=== PATIENT | male | born 1950 | race Caucasian/White ===

== ENCOUNTER → 2018-03-22 | Outpatient (CLI) | payer MEDICARE, OTHER ==
[~2018-03-22] MED LIST: ADVIL LIQUI-GE200 MG PO; ALEVE220 M1 PO; ALLEGRA180 MG PO; GLUCOPHAGE500 MG PO; NASONEX17 GM NASAL; OMEPRAZOLE20 MG PO; PRAVASTATIN SOD40 MG PO; VICODIN ES TAB1 EACH PO
== END ==
LOC: M.RAD 10:53
DX: R06.02 Shortness of breath (principal)

== ENCOUNTER → 2018-03-27 | Outpatient (CLI) | payer MEDICARE, OTHER ==
--- NOTE | 2018-03-27 16:18 | 2DMMODE ---
[place] [address] 2 D/M-MODE ECHOCARDIOGRAM Name: SUNITHA GORDON Room: [facility]#: [id number] Admission: 03/27/18 Attend Phys: Sunitha Bennett, Discharge: Date of : 50 Date of Service: 03/27/18 1617 Report #: [id number] THIS REPORT FOR: //name// APPROVED REPORT Study performed: 03/27/2018 14:06:12 EXAM: Comprehensive 2D, Doppler, and color-flow Echocardiogram Patient Location: Out-Patient Status: routine BSA: 2.00 HR: 70 bpm BP: 116/80 mmHg Other Information Study Quality: Good Indications Dyspnea 2D Dimensions IVSd: 14.45 (7-11mm) LVOT Diam: 20.02 (18-24mm) LVDd: 41.12 mm PWd: 10.40 (7-11mm) Ascending Ao: 30.76 (22-36mm) LVDs: 27.04 (25-40mm) Aortic Root: 30.75 mm Volumes Left Atrial Volume (Systole) LA ESV Index: 14.20 mL/m2 Aortic Valve AoV Peak Piyush.: 1.19 m/s AO Peak Gr.: 5.62 mmHg LVOT Max P.67 mmHg AO Mean Gr.: 2.52 mmHg LVOT Mean P.39 mmHg LVOT Max V: 0.82 m/s AO V2 VTI: 19.75 cm LVOT Mean V: 0.55 m/s MAU (VTI): 3.23 cm2 LVOT V1 VTI: 20.30 cm Mitral Valve E/A Ratio: 0.94 MV Decel. Time: 159.54 ms MV E Max Piyush.: 0.60 m/s MV PHT: 46.27 ms MVA (PHT): 4.76 [place] [address] 2 D/M-MODE ECHOCARDIOGRAM Name: SUNITHA GORDON Room: [facility]#: [id number] Admission: 03/27/18 Attend Phys: Sunitha Bennett, Discharge: Date of : 50 Date of Service: 03/27/18 1617 Report #: [id number] TDI E/Lateral E': 5.45 E/Medial E': 7.50 Medial E' Piyush.: 0.08 m/s Lateral E' Piyush.: 0.11 m/s Pulmonary Valve PV Peak Piyush.: 0.94 m/s PV Peak Gr.: 3.54 mmHg Tricuspid Valve RAP Estimate: 5.00 mmHg TR Peak Gr.: 20.67 mmHg RVSP: 25.67 mmHg PA Pressure: 25.67 mmHg Left Ventricle The left ventricle is normal size. There is normal LV segmental wall motion. There is normal left ventricular wall thickness. Left ventricular systolic function is normal. LVEF is 60-65%. The left ventricular diastolic function is normal. Right Ventricle The right ventricle is normal size. The right ventricular systolic function is normal. Atria The left atrium size is normal. The right atrium size is normal. Aortic Valve The aortic valve is normal in structure. No aortic regurgitation is present. There is no aortic valvular stenosis. Mitral Valve The mitral valve is normal in structure. Mild mitral regurgitation. No evidence of mitral valve stenosis. Tricuspid Valve The tricuspid valve is normal in structure. Mild tricuspid regurgitation. No pulmonary hypertension. Pulmonic Valve The pulmonary valve is normal in structure. There is no pulmonic [place] [address] 2 D/M-MODE ECHOCARDIOGRAM Name: SUNITHA GORDON [id number] Admission: 03/27/18 Attend Phys: Sunitha Bennett, Discharge: Date of : 50 Date of Service: 03/27/18 1617 Report #: [id number] Great Vessels The aortic root is normal in size. IVC is normal in size and collapses >50% with inspiration. Pericardium There is no pericardial effusion. <Conclusion> The left ventricle is normal size. There is normal left ventricular wall thickness. Left ventricular systolic function is normal. LVEF is 60-65%. The left ventricular diastolic function is normal. Mild tricuspid regurgitation. No pulmonary hypertension. IVC is normal in size and collapses >50% with inspiration. <ELECTRONICALLY SIGNED> By: Raymond Pablo MD, FACC 03/27/18 161 16 16 Raymond Pablo MD, FACC /INF
== END ==
LOC: M.CRD 12:50
DX: I07.1 Rheumatic tricuspid insufficiency (principal); I35.8 Other nonrheumatic aortic valve disorders; R06.02 Shortness of breath; E11.9 Type 2 diabetes mellitus without complications

== ENCOUNTER 2018-04-06 14:09 | Inpatient (IN) | payer MEDICARE, OTHER ==
[~2018-04-06] VITALS: Ht 170.2 cm; Wt 88.7 kg
--- NOTE | ~2018-04-06 | EKG ---
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
[~2018-04-06 14:09] MED LIST changes: +ALLEGRA ALLERGY60 MG PO; -ALLEGRA180 MG PO
[2018-04-06 14:24] VITALS: BP 173/90
[2018-04-06] MEDS ORDERED: ETODOLAC 400 M400 M1 PO (14:33)
[2018-04-06] MEDS ORDERED: METFORMIN HCL500 MG PO (14:42)
[2018-04-06 15:01] LABS: ABSOLUTE EOSINOPHILS 0.2 thou/uL (0.0-0.7); ABSOLUTE LYMPHOCYTES 2.3 thou/uL (0.8-5.3); ABSOLUTE MONOCYTES 0.5 thou/uL (0.0-1.2); ABSOLUTE NEUTROPHILS 2.8 thou/uL (1.6-8.1); BASOPHILS 0.5 %; EOSINOPHILS 2.7 %; HEMATOCRIT 43.1 % (42.0-52.0); LYMPHOCYTES 40.3 %; MCH 31.8 pg (26.0-34.0); MCHC 34.8 g/dL (28.0-37.0); MCV 91.3 fL (80.0-100.0); MPV 8.5 fl. (7.2-11.1); NUCLEATED RBCS 0 /100WBC; PLATELET COUNT* 212 thou/uL (150-400); POLYS 48.5 %; RBC 4.71 mil/uL (4.50-6.00); RDW-CV 12.6 % (10.5-14.5); WBC 5.7 thou/uL (4.0-11.0)
[2018-04-06 15:05] LABS: ANION GAP 10 mmol/L (7-16); BUN 13 mg/dL (7-18); CALCIUM 9.5 mg/dL (8.5-10.1); CHLORIDE 97 mmol/L (98-107); CO2 25 mmol/L (21-32); GLUCOSE 254 mg/dL (70-99); POTASSIUM 3.9 mmol/L (3.5-5.1); SODIUM 132 mmol/L (136-145)
[2018-04-06 15:07] LABS: PROTIME 9.8 Seconds (9.20-11.50)
[2018-04-06 15:13] LABS: TROPONIN-I LEVEL <0.06 ng/mL (<0.06)
[2018-04-06 15:17] LABS: NT-PRO BRAIN NAT PEPTIDE 33 pg/mL (<300)
[2018-04-06 15:18] LABS: ALKALINE PHOSPHATASE 102 U/L (46-116); LIPASE 99 U/L (73-393); SGPT 106 U/L (30-65); TOTAL BILIRUBIN 0.5 mg/dL (<0.1-1.0); TOTAL PROTEIN 7.6 g/dL (6.4-8.2)
[2018-04-06 15:38] LABS: SGOT 61 U/L (15-37)
[2018-04-06 17:15] VITALS: BP 152/78
[2018-04-06 17:29] VITALS: BP 166/81
[2018-04-06] MEDS ORDERED: UNICOMPLEX M TA1 TA1 PO (17:49)
[2018-04-06] MEDS ORDERED: VITAMIN D1000 UNI2 PO (17:49)
[2018-04-06] MEDS ORDERED: OMEPRAZOLE20 MG PO (17:51)
[2018-04-06 19:50] VITALS: BP 157/78
[2018-04-07] VITALS: BP 111/58
[2018-04-07 04:00] VITALS: BP 129/63
[2018-04-07 04:55] LABS: ABSOLUTE BASOPHILS 0.1 thou/uL (0.0-0.2); ABSOLUTE EOSINOPHILS 0.2 thou/uL (0.0-0.7); ABSOLUTE MONOCYTES 0.5 thou/uL (0.0-1.2); ABSOLUTE NEUTROPHILS 3.4 thou/uL (1.6-8.1); BASOPHILS 0.8 %; EOSINOPHILS 2.9 %; HEMATOCRIT 39.7 % (42.0-52.0); HEMOGLOBIN 13.6 gm/dL (14.0-18.0); LYMPHOCYTES 41.9 %; MCH 31.5 pg (26.0-34.0); MCHC 34.1 g/dL (28.0-37.0); MCV 92.5 fL (80.0-100.0); MONOCYTES 6.9 %; MPV 8.2 fl. (7.2-11.1); NUCLEATED RBCS 0 /100WBC; PLATELET COUNT* 195 thou/uL (150-400); POLYS 47.5 %; RDW-CV 12.5 % (10.5-14.5); WBC 7.1 thou/uL (4.0-11.0)
[2018-04-07 08:00] VITALS: BP 140/76
--- NOTE | 2018-04-07 11:48 | EKG ---
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1950 Requested By: Tracee Harden Order Number: [id number] MD: Rodrigo Allen Measurements Intervals [place] Rate: 68 P: 46 MO: 162 QRS: 32 QRSD: 101 T: 64 QT: 375 QTc: 399 Interpretive Statements Sinus rhythm Probable left atrial enlargement Borderline repolarization abnormality Compared to ECG 10/04/2009 11:57:22 Sinus bradycardia no longer present Electronically Signed On 04-07-2018 11:48:23 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
[2018-04-07 12:00] VITALS: BP 128/68
[2018-04-07 16:00] VITALS: BP 135/67
[2018-04-07 19:40] VITALS: BP 142/64
[2018-04-08] VITALS: BP 139/66
[2018-04-08 04:00] VITALS: BP 137/72
[2018-04-08 07:48] VITALS: BP 132/71
[2018-04-08 11:39] VITALS: BP 144/73
[2018-04-08 13:28] LABS: ANION GAP 12 mmol/L (7-16); BUN 11 mg/dL (7-18); CALCIUM 9.4 mg/dL (8.5-10.1); CHLORIDE 96 mmol/L (98-107); CHOLESTEROL 254 mg/dL (<200); CO2 23 mmol/L (21-32); CREATININE 0.9 mg/dL (0.6-1.3); GLUCOSE 200 mg/dL (70-99); HDL CHOLESTEROL 43 mg/dL (>40); SODIUM 131 mmol/L (136-145); TC:HDL 5.9 Ratio (Not establshd); TRIGLYCERIDE 558 mg/dL (<150); VLDL 112 mg/dL (<40)
[2018-04-08 13:30] LABS: LDL CHOLESTEROL ND mg/dL (<100); SERUM ASSESSMENT Moderate Lipemia
[2018-04-08 15:45] VITALS: BP 132/65
[2018-04-08 20:56] VITALS: BP 145/71
[2018-04-09] VITALS (20 sets, daily range): BP systolic 115–197; BP diastolic 56–94
--- NOTE | 2018-04-09 15:01 | EKG ---
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1950 Requested By: Sunitha Jorgensen Order Number: [id number] Bunny MD: Sunitha Jorgensen Measurements Intervals [place] Rate: 65 P: 47 TN: 181 QRS: 36 QRSD: 91 T: 89 QT: 397 QTc: 413 Interpretive Statements Sinus rhythm Probable left atrial enlargement Nonspecific T abnormalities, lateral leads Compared to ECG 04/06/2018 14:17:43 no change Electronically Signed On 04-09-2018 15:01:21 MRI TECH by Sunitha Jorgensen [email or web address] <ELECTRONICALLY SIGNED> By: Sunitha Jorgensen MD, LOCATED WITHIN [facility] 04/09/18 1501 0949 Sunitha Jorgensen MD, FAC /EPI
--- NOTE | 2018-04-09 17:24 | CARD ---
[address] [address] CARDIAC CATH REPORT Name: SUNITHA GORDON Room: 229-P ADM IN M.R.#: [id number] Admission: 04/06/18 Attend Phys: Guru Ortiz MD Discharge: Date of : 50 Report #: [id number] THIS REPORT FOR: //name// APPROVED REPORT Study performed: 04/09/2018 07:35:56 Patient Details Patient Status: In-Patient Room #: 229 The patient is a 67 year-old male Event Personnel Sunitha Jorgensen [employer], Adilia Powell RN Internet Retailer, Luis Miguel Heard (R) Monitor, Kathy Yeh RTR Scrub Procedures Performed JUSTINE Place w/wo Plasty Single LAD Indication Positive stress test, Chest pain Risk Factors Diabetes Admission/Lab Medications/Medications given during procedure Heparin Unfract. Procedure Narrative The patient was brought electively to the Cardiac Catheterization Laboratory and was prepped and draped in a sterile manner. The right wrist was infiltrated with 1% Lidocaine subcutaneous anesthesia. A Slender Glidesheath sheath was inserted into the right radial artery. Coronary angiography was performed using coronary diagnostic catheters. The right coronary system was accessed and visualized with a Diagnostic JR4 catheter. The left coronary system was accessed and visualized with a Diagnostic JL 4 catheter. Left ventricular/Aortic Valve gradient assessed via catheter pullback. Closure device was deployed with a 6 Fr Vasc-Band Reg 24cm. The patient tolerated the procedure well and there were no complications associated with the procedure. There was no hematoma. Intraoperative Conscious Sedation Sedation start time: 8:40 Case end Time: 9:44 [place] [address] CARDIAC CATH REPORT Name: SUNITHA GORDON Room: [address] IN [facility]#: [id number] Admission: 04/06/18 Attend Phys: Guru Ortiz MD Discharge: Date of : 50 Report #: [id number] Fentanyl 100 mcg Versed 4 mg Fluoro Time: 10.1 minutes Dose: DAP [id number] cGycm2 2061 mGy Contrast Type and Amount: Omnipaque 240 ml Coronary Angiography The patient's coronary anatomy is right dominant. Diagnostic Cath Left Main 0% stenosi LAD 90% mid and 80% apical stenosis noed Diagonal 1 small vessel with 70% ostial stenosis noted Circumflex 0% stenosis Right Coronary 100% occluded after marginal branch, with faint distal collateral filling Left Ventriculography Left Ventriculography was not performed. Hemodynamics The aortic pressure is 109/58 mmHg with a mean of 80 mmHg. The left ventricular pressure is 128/10 mmHg with a mean of mmHg. The left ventricular end diastolic pressure is 22 mmHg. There was no gradient across the aortic valve upon pullback. Pullback from the left ventricle to the aorta revealed no gradient across the aortic valve. PCI Technique Lesion Anticoagulation was achieved with Heparin. bolus of IV aggrastat given Percutaneous coronary intervention was performed on the mid left anterior descending artery segment. The lesion stenosis prior to intervention was 90% with RENETTA 3 flow. A 6F XB LAD 3.5 Guide Catheter was used to engage the lm ostium. A BMW 190cm Interventional Guidewire was used to cross the lesion. BALLOON DILATION A Balloon catheter Trek RX 2.5 X 8 was inserted and inflated up to 8.00atm for 12seconds. Repeat angiography revealed the following post-dilatation results: 50% stenosis. Additional Inflation: 12.00atm for 20seconds. Additional Inflation: 12.00atm for 12seconds. STENT DEPLOYMENT A drug-eluting stent Xience Grace 2.5X23mm was inserted and inflated up to 9.00atm for 15seconds. Repeat angiography revealed the following post-stent deployment results: 0% [place] [address] CARDIAC CATH REPORT Name: SUNITHA GORDON Room: [address]#: [id number] Admission: 04/06/18 Attend Phys: Guru Ortiz MD Discharge: Date of : 50 Report #: [id number] Inflation: 10.00atm for 13seconds. 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 PCI Technique Lesion 2 Percutaneous Coronary Intervention was performed on the mid right coronary artery. Percutaneous coronary intervention was performed on the mid right coronary artery. The lesion stenosis prior to intervention was 100% with RENETTA 0 flow. A 6 bengali jr4 Guide Catheter was used to engage the rca ostium. A whisper Interventional Guidewire was used to cross the lesion. Balloon Dilation Able to pass BMW wire across the total occlusion of the mid rca into a small posterior descending branch. Able to pass whisper wire into posterior descending branch, but unable to pass wire into posterolater branch. Vessel was felt to represent a chronic occlusion that filled retrograde by collaterals. Decided to abandon additional efforts at PTCA of the rca, and proceed with stenting of the lad Final angiography reveals 100 % stenosis with RENETTA 0 flow. Conclusion 1. 90% stenosis of mid lad 2. chronic occlusion of the mid rca 3. successful placement of a drug eluting stent in the mid lad Recommendations Cardiac Rehabilitation Referral Aggressive Medical Therapy Medications Administered Clopidogrel <ELECTRONICALLY SIGNED> By: Sunitha Jorgensen MD, [facility] 04/09/18 1723 1723 1723Davicarlos alberto Jorgensen MD, FACC /INF
[2018-04-10] VITALS: BP 104/52
[2018-04-10 04:00] VITALS: BP 123/68
[2018-04-10 04:43] LABS: HEMATOCRIT 38.9 % (42.0-52.0); HEMOGLOBIN 13.6 gm/dL (14.0-18.0); MCH 31.9 pg (26.0-34.0); MCHC 34.9 g/dL (28.0-37.0); MCV 91.5 fL (80.0-100.0); MPV 8.4 fl. (7.2-11.1); RBC 4.25 mil/uL (4.50-6.00); RDW-CV 12.6 % (10.5-14.5); WBC 7.2 thou/uL (4.0-11.0)
[2018-04-10 05:11] LABS: CALCIUM 8.9 mg/dL (8.5-10.1); POTASSIUM 3.7 mmol/L (3.5-5.1)
[2018-04-10 05:13] LABS: TROPONIN-I LEVEL 4.07 ng/mL (<0.06)
[2018-04-10 08:00] VITALS: BP 138/79
[2018-04-10] MEDS ORDERED: LISINOPRIL5 MG PO (09:59)
[2018-04-10] MEDS ORDERED: LIPITOR40 MG PO (10:00)
[2018-04-10] MEDS ORDERED: PLAVIX 75 MG TA75 M1 PO (10:01)
[2018-04-10] MEDS ORDERED: NITROGLYCERIN0.4 MG SUBLING (10:02)
[2018-04-10 10:10] VITALS: BP 138/79
[2018-04-10] MEDS ORDERED: ASPIR 8181 MG PO (10:59)
[2018-04-10] MEDS ORDERED: TYLENOL325 MG PO (11:00)
--- NOTE | 2018-04-17 10:08 | CON ---
[address] [address] CONSULTATION Name: SUNITHA GORDON Room: [address] IN M.R.#: [id number] Admission: 04/06/18 Attend Phys: Guru Ortiz MD Discharge: 04/10/18 Date of : 50 Report #: [id number] THIS REPORT FOR: //name// CC: Guru Bennett DATE OF SERVICE: 04/06/2018 PRIMARY CARE PHYSICIAN: Sunitha Bennett MD CHIEF COMPLAINT: Chest pressure, shortness of breath. HISTORY OF PRESENT ILLNESS: The patient is a 67-year-old diabetic who had an abnormal nuclear stress test. It revealed reversible defects in the anterior and inferior apex. There was a treadmill nuclear stress test, which was ordered for symptoms of exertional shortness of breath. These symptoms began approximately in December and January and then had progressively worsened. He has to walk 14 steps to get up to his bedroom and he has noticed at the top he is more short of breath with activity. He has no resting symptoms. It is never associated with chest pressure, but sometimes he will get the jaw tightness. It is not associated with diaphoresis, palpitations, heart racing or skipping. His blood pressure initially was elevated on presentation, but later on in his Emergency Room stay it normalized. He has been treated for type 2 diabetes for approximately 5-8 years. He has a prior history of tobacco use, but not actively. There is a family history of congestive heart failure. He is adopted, but his mother from complications from CHF. He has joint disease. HOME MEDICATIONS: Include Nasonex, naproxen p.r.n., etodolac b.i.d., metformin 1 g b.i.d. and fexofenadine. ALLERGIES: He has no known drug allergies. He denies aspirin or contrast allergies. SOCIAL HISTORY: As noted above. He is a prior smoker. He drinks irregularly. REVIEW OF SYSTEMS: GENERAL: No fevers or chills. PULMONARY: Positive shortness of breath, no palpitations. CARDIOVASCULAR: No chest pain. No edema. NEUROLOGIC: Denies headaches, blurry vision, seizures. ENDOCRINE: Positive diabetes. [place] [address] CONSULTATION Name: MAHINELSONSUNITHA MICHAELA Room: [address]#: [id number] Admission: 04/06/18 Attend Phys: Guru Ortiz MD Discharge: 04/10/18 Date of : 50 Report #: [id number] RENAL: No history of kidney failure. CONSTITUTIONAL: Negative. PHYSICAL EXAMINATION: VITAL SIGNS: Blood pressure is 140/87 and pulse is sinus rhythm 70, respiratory rate 16, O2 sat is 98% on room air, weight is 193 pounds. GENERAL: This is a pleasant, healthy appearing, middle-aged male. He is alert, oriented, no apparent distress. HEENT: Eyes are intact. No facial asymmetry. NECK: Supple. No jugular venous distention. Upstrokes are normal. There are no bruits. CARDIOVASCULAR: Regular. I cannot hear a murmur or S3. EXTREMITIES: No peripheral edema. SKIN: Warm and dry. His resting ECG shows a sinus rhythm, normal ST segments, 68 beats per minute. LABORATORY DATA: Sodium is 132, potassium is 3.9, chloride is 97, BUN is 13, creatinine is 1.0. Troponin I is 0.06 on first set. BNP is 33. INR is 1.0. Hemoglobin is 15.0. Chest x-ray shows normal single view chest. IMPRESSION: 1. Unstable angina. 2. Abnormal stress test. 3. Diabetes mellitus. 4. Tobacco use prior. At this point in time, the patient presents with worsening shortness of breath with activity, which is likely his anginal equivalent. After discussions with the patient, we will proceed with a coronary arteriogram. We will survey his lipids and treat accordingly. We will continue with medical therapy and revascularize based on findings. <ELECTRONICALLY SIGNED> By: Rodrigo Allen MD, FACC 04/17/18 1008 1646 0611Rodrigo Allen MD, FACC /nt
== END 2018-04-10 11:30 | disposition home or self-care (01) | DRG 246 ==
LOC: M.ERS 14:09 → M.2W 15:15 → M.TBA-ER 15:15 → M.2W 17:13
PROVIDERS: Internal Medicine Cardiovascular Disease; Personal Emergency Response Attendant; ADMIT Internal Medicine
PROC: B2111ZZ Fluoroscopy of Multiple Coronary Arteries using Low Osmolar Contrast (ICD-10-PCS; principal; 2018-04-09)
PROC: 4A023N7 Measurement of Cardiac Sampling and Pressure, Left Heart, Percutaneous Approach (ICD-10-PCS; principal; 2018-04-09)
PROC: 027034Z Dilation of Coronary Artery, One Artery with Drug-eluting Intraluminal Device, Percutaneous Approach (ICD-10-PCS; principal; 2018-04-09)
DX: I25.110 Atherosclerotic heart disease of native coronary artery with unstable angina pectoris (principal); I50.31 Acute diastolic (congestive) heart failure; E87.1 Hypo-osmolality and hyponatremia; K21.9 Gastro-esophageal reflux disease without esophagitis; E11.40 Type 2 diabetes mellitus with diabetic neuropathy, unspecified; M19.90 Unspecified osteoarthritis, unspecified site; E78.5 Hyperlipidemia, unspecified; Z87.442 Personal history of urinary calculi; Z87.81 Personal history of (healed) traumatic fracture; Z79.899 Other long term (current) drug therapy; Z79.84 Long term (current) use of oral hypoglycemic drugs; Z87.891 Personal history of nicotine dependence; Z82.49 Family history of ischemic heart disease and other diseases of the circulatory system

== ENCOUNTER 2018-08-06 10:13 | Emergency (ER) | payer MEDICARE, OTHER ==
[~2018-08-06] VITALS: Ht 172.7 cm; Wt 86.6 kg
[~2018-08-06 10:13] MED LIST changes: +ASPIR 8181 MG PO; +ETODOLAC 400 M400 M1 PO; +LIPITOR40 MG PO; +LISINOPRIL5 MG PO; +METFORMIN HCL500 MG PO; +NITROGLYCERIN0.4 MG SUBLING; +PLAVIX 75 MG TA75 M1 PO; +TYLENOL325 MG PO; +UNICOMPLEX M TA1 TA1 PO; +VITAMIN D1000 UNI2 PO
[2018-08-06 11:13] VITALS: BP 118/78
== END 2018-08-06 11:13 | disposition home or self-care (01) ==
LOC: M.ERS 10:13
DX: S90.122A Contusion of left lesser toe(s) without damage to nail, initial encounter (principal); K21.9 Gastro-esophageal reflux disease without esophagitis; E78.5 Hyperlipidemia, unspecified; M19.90 Unspecified osteoarthritis, unspecified site; G62.9 Polyneuropathy, unspecified; Z87.442 Personal history of urinary calculi; W22.8XXA Striking against or struck by other objects, initial encounter; Y93.89 Activity, other specified; Y92.89 Other specified places as the place of occurrence of the external cause; Y99.8 Other external cause status

== ENCOUNTER → 2020-01-02 | Outpatient (CLI) | payer MEDICARE, OTHER ==
--- NOTE | 2020-01-13 07:59 | PF ---
[address] [address] PULMONARY FUNCTION REPORT Name: SUNITHA GORDON Room: [facility].#: [id number] Admission: 01/02/20 Attend Phys: Neida Quan RN Discharge: Date of : 50 Report #: [id number] THIS REPORT FOR: //name// CC: Chapin Quan DATE OF SERVICE: 01/02/2020 The FEV1/FVC ratio is mildly decreased to 68% with a forced vital capacity normal at 98% and FEV1 also normal at 91%. The FQE13-92 is also normal at 69%. After the administration of a bronchodilator, there is no significant increase in any of these values. The patient's post-bronchodilator FEV1 is noted to be 2.81 L. The total lung capacity is normal at 84% with a residual volume mildly decreased to 62%. The DLCO as adjusted for hemoglobin is normal at 90%. The flow volume loop is concave upwards. IMPRESSION: Mild obstruction as evidenced by the FEV1/FVC ratio. This is noted to be 68%. The rest of the pulmonary function tests are unremarkable. <ELECTRONICALLY SIGNED> By: Mo Hunyh MD 01/13/20 0759 0724 0735Mo Huynh MD /nt
== END ==
LOC: M.PUL 09:58
PROVIDERS: ATTEND Nurse Practitioner
DX: J44.9 Chronic obstructive pulmonary disease, unspecified (principal)

== ENCOUNTER → 2020-03-06 | Outpatient (CLI) | payer MEDICARE, OTHER | LOC: M.RAD 09:00 | PROVIDERS: ATTEND Internal Medicine | DX: R05 Cough (principal); R06.02 Shortness of breath ==

== ENCOUNTER → 2020-05-12 | Outpatient (CLI) | payer MEDICARE, OTHER ==
--- NOTE | 2020-05-12 16:16 | EXE ---
[place] [address] STRESS ECHOCARDIOGRAM Name: SUNITHA GORDON Room: [facility]#: [id number] Admission: 05/12/20 Attend Phys: Sunitha Jorgensen MD Discharge: Date of : 50 Date of Service: 05/12/20 1616 Report #: [id number] THIS REPORT FOR: cc: Chapin Mahan MD, Dean L. MD Liston, Michael J. MD [facility] ~ APPROVED REPORT Study performed: 05/12/2020 14:38:08 Exam: Stress Echocardiogram Indication: Dyspnea Patient Location: Out-Patient Stress Nurse: Concetta Munoz RN Supervising Physician: Raymond Pablo MD Ht: 5 ft 7 in HR: 63 bpm BP: 132/73 mmHg Medical History Medical History: CAD, PCI Cardiac Risk Factors: Age,, Hyperlipidemia, HTN, DM, Tobacco History (Former), FHX of CAD Procedure The patient underwent an Exercise Stress Test using the Ren Protocol. Blood pressure, heart rate, and EKG were monitored. An Echocardiogram was performed by pharmaceutical development technician in four stages in quad fashion. At peak stress, four selected images were obtained and placed side by side with resting images for comparison. Stress Test Details Stress Test: Exercise stress testing was performed using a Ren protocol. HR Resting HR: 63 bpm Max Heart Rate (APMHR): 151 bpm Max HR Achieved: 132 bpm Target HR (85% APMHR): 128 bpm % of APMHR: 87 Recovery HR: 86 bpm HR response to stress: Normal HR response to stress BP Resting BP: 132/73 mmHg Max BP: 182/59 [place] [address] STRESS ECHOCARDIOGRAM Name: SUNITHA GORDON Room: [facility]#: [id number] Admission: 05/12/20 Attend Phys: Sunitha Jorgensen MD Discharge: Date of : 50 Date of Service: 05/12/20 1616 Report #: [id number] Recovery BP: 160/73 mmHg BP response to stress: Normal blood pressure response to stress. ECG Resting ECG: Sinus Rhythm Stress ECG: Sinus Tachycardia ST Change: Downsloping ST depression Maximum ST Deviation: 1.5 mm Arrhythmia: VPC's Recovery ECG: Sinus Rhythm Recovery ST Change: Downsloping ST depression Recovery Arrhythmia: VPC's Clinical Reason for Termination: ST changes, Dyspnea, Maximal effort, Leg pain Exercise duration: 8 min 31 sec Highest Stage Achieved: Stage 3: 3.4 mph at 14% grade. Exercise capacity: 10.16 METs Patient exhibited reasonable exercise tolerance. He did have dyspnea and fatigue with exercise. Stress ECG Conclusion The baseline twelve-lead EKG shows sinus rhythm without significant ST segment abnormality. EKGs obtained during and post exercise show sinus rhythm and sinus tachycardia with 1.[address] segment depression noted in the inferolateral leads that persisted 8 minutes into recovery. There were occasional unifocal premature ventricular contractions. Pre-Stress Echo The resting Echocardiogram showed normal left ventricular contractility with an estimated Ejection Fraction of about 60-65%. The resting echocardiogram demonstrated normal wall motion in all wall segments. Post-Stress Echo The stress Echocardiogram showed Preserved left ventricular contractility with an estimated Ejection Fraction of about 65-70%. The stress Echocardiogram demonstrated wall motion abnormality in the basal inferior wall. Conclusion Clinical Response: Ischemic Exercise Capacity: Average Stress ECG Response: [place] [address] STRESS ECHOCARDIOGRAM Name: SUNITHA GORDON Room: [facility]#: [id number] Admission: 05/12/20 Attend Phys: Sunitha Jorgensen MD Discharge: Date of : 50 Date of Service: 05/12/20 1616 Report #: [id number] Stress Echo Images: Ischemic Twelve-lead EKG suggests stress-induced ischemia with EKG changes as outlined above. Based on the stress echocardiogram there appears to be stress-induced ischemia involving the basal portion the inferior wall. Other Information Study Quality: Good <Conclusion> Twelve-lead EKG suggests stress-induced ischemia with EKG changes as outlined above. Based on the stress echocardiogram there appears to be stress-induced ischemia involving the basal portion the inferior wall. <ELECTRONICALLY SIGNED> By: Raymond Pablo MD, FACC 05/12/20 1616 15 15 Raymond Pablo MD, FACC /INF
--- NOTE | 2020-05-13 09:04 | TST ---
[place] [address] TREADMILL STRESS TEST Name: SUNITHA GORDON Room: [facility]#: [id number] Admission: 05/12/20 Attend Phys: Sunitha Jorgensne MD Discharge: Date of : 50 Date of Service: 05/12/20 1612 Report #: [id number] THIS REPORT FOR: cc: Chapin Mahan MD, Dean L. MD Liston, Michael J. MD [facility] ~ DATE OF SERVICE: 05/12/2020 PROCEDURE: Standard Ren protocol exercise stress test. INDICATION: Dyspnea. CARDIAC HISTORY: History of coronary artery disease with previous percutaneous coronary intervention. CARDIAC RISK FACTORS: Age greater than 45, hyperlipidemia, hypertension, type 2 diabetes mellitus, and history of tobacco use with cessation in 1994. Family history of coronary artery disease. CARDIAC MEDICATIONS: Atorvastatin, Plavix, lisinopril, metformin, and nitroglycerin. The patient exercised per standard Ren protocol for a total of 8 minutes and 31 seconds. The patient achieved 10.16 METs. The patient achieved 89% of his maximum predicted heart rate. Resting blood pressure was 132/73 mmHg with a resting pulse rate of 63 beats per minute. At peak exercise, the blood pressure was 182/59 mmHg with a peak stress heart rate of 132 beats per minute. Recovery blood pressure was 160/73 mmHg with a recovery heart rate of 86 beats per minute. Exercise was terminated due to dyspnea, fatigue as well as EKG changes. IMPRESSION: 1. Clinical response: The patient had symptoms suggestive of angina including dyspnea. 2. Stress EKG results: Positive for stress-induced ischemia. <ELECTRONICALLY SIGNED> By: Raymond Pablo MD, FACC 05/13/20 0904 1612 1954 Raymond Pablo MD, FACC /nt
== END ==
LOC: M.CRD 14:27
PROVIDERS: ATTEND Internal Medicine Cardiovascular Disease
DX: I25.10 Atherosclerotic heart disease of native coronary artery without angina pectoris (principal)

== ENCOUNTER → 2020-09-16 | Outpatient (CLI) | payer MEDICARE, OTHER | LOC: M.RAD 11:40 | PROVIDERS: ATTEND Internal Medicine | DX: R06.02 Shortness of breath (principal); J98.11 Atelectasis ==

== ENCOUNTER → 2020-10-05 | Outpatient (CLI) | payer MEDICARE, OTHER | LOC: M.RAD 14:12 | PROVIDERS: ATTEND Internal Medicine | DX: U07.1 COVID-19 (principal); J18.9 Pneumonia, unspecified organism; R91.8 Other nonspecific abnormal finding of lung field ==

== ENCOUNTER → 2020-11-17 | Outpatient (CLI) | payer MEDICARE, OTHER | LOC: M.RAD 10:19 | PROVIDERS: ATTEND Internal Medicine | DX: J12.89 Other viral pneumonia (principal) ==